=== PATIENT | male | born 1950 | race Two or more races ===

== ENCOUNTER 2016-05-23 13:30 | Outpatient (RCR) | payer BC ==
[~2016-05-23 13:30] MED LIST: CEPHALEXIN500 MG ORAL; GLUCOPHAGE500 MG ORAL; IBUPROFEN200 MG ORAL; METFORMIN HCL500 M1 ORAL; VICODIN 5-3001 EACH ORAL
== END 2016-06-13 | disposition home or self-care (01) ==
LOC: WCC 13:30
DX: E11.42 Type 2 diabetes mellitus with diabetic polyneuropathy (principal); Z89.421 Acquired absence of other right toe(s); G99.0 Autonomic neuropathy in diseases classified elsewhere; Z85.528 Personal history of other malignant neoplasm of kidney
CPT/HCPCS: G0463